=== PATIENT | female | born 1980 | race Caucasian/White ===

== ENCOUNTER 2016-06-26 09:58 | Emergency (ER) | payer OTHER ==
[2016-06-26 10:10] VITALS: BP 126/61; PULSE 100; TEMP 98; BMI 20.5
[2016-06-26] MEDS ORDERED: ACETAMINOPHEN 500 MG TABLET (FP) PO ONE (10:57)
--- NOTE | 2016-06-26 10:58 | PDOC ---
History of Present Illness - General Chief Complaint: Pain Stated Complaint: WRIST PAIN (BOTH) Time Seen by Provider: 06/26/16 10:29 History Source: Patient Exam Limitations: No Limitations - History of Present Illness Initial Comments: 06/26/16 19:51 Chief complaint: Bilateral medial wrist pain 4 months History of present illness: Patient is a 36-year-old female with no significant medical problems here today complaining of bilateral medial wrist pain 4 months. Patient reports that the right is worse in the left right medial wrist is currently a 9 out of 10 with movement and left medial wrist is a 5 out of 10 with movement. Patient reports that she is breast-feeding and is constantly holding her baby and bending her wrist. Patient has not sought any medical treatment for this complaint. Patient has not taken anything for pain. Denies any radiation of pain up arms are any pain and fingers. Patient reports having tingling in her right dominant and middle finger at times. Patient denies any tingling or numbness of wrist or radiation of the forearms. Occurred: reports: other (4 MONTHS B/L WRIST PAIN ) Extremity Pain Location - Extremity Pain Location Extremity Pain Locations: bilateral: other (wrists ) Past History - Past Medical History Allergies/Adverse Reactions: Allergies Allergy/AdvReac Type Severity Reaction Status Date / Time No Known Allergies Allergy Verified 06/26/16 10:06 Home Medications: Ambulatory Orders NK [No Known Home Medication] 06/26/16 Other medical history: MIGRANES. - Psycho/Social/Smoking Cessation Hx Suicidal Ideation: No Smoking History: Never smoked Review of Systems - Review of Systems Able to Perform ROS?: Yes Constitutional: No: Symptoms Reported HEENTM: No: Symptoms Reported Respiratory: No: Symptoms reported Cardiac (ROS): No: Symptoms Reported ABD/GI: No: Symptoms Reported : No: Symptoms Reported Musculoskeletal: Yes: Joint Pain (b/l medial wrist). No: Joint Swelling Integumentary: No: Symptoms Reported Neurological: No: Symptoms reported *Physical Exam - Vital Signs Last Vital Signs Temp Pulse Resp BP Pulse Ox 98 F 100 H 19 126/61 100 06/26/16 10:07 06/26/16 10:07 06/26/16 10:07 06/26/16 10:07 06/26/16 10:07 - Physical Exam General Appearance: Yes: Appropriately Dressed Respiratory/Chest: positive: Lungs Clear, Normal Breath Sounds Cardiovascular: positive: Regular Rhythm, Regular Rate, S1, S2 Comments:: 06/26/16 19:53 radial b/l wrist 4 + Extremity: positive: Normal Capillary Refill, Normal Range of Motion (b/ wrist all digits ), Tender (b/l medial wrist), Other (negtive PHALEN, TINEL b/l ) Integumentary: positive: Normal Color Neurologic: positive: Alert, Normal Response, Responsive. negative: Respond to painful stimul (b/l wrist/digits on hands ), Numbness, Sensory Deficit Procedures - Consent Consent obtained: From Patient - Splinting Splint Type: Yes: Wrist (rt. ) Post-Proc Neuro Vasc Exam: normal Complications: No Medical Decision Making - Medical Decision Making 06/26/16 19:53 Patient is a 36-year-old female with no significant medical problems here today complaining of bilateral medial wrist pain 4 months. Patient reports that the right is worse in the left right medial wrist is currently a 9 out of 10 with movement and left medial wrist is a 5 out of 10 with movement. Patient reports that she is breast-feeding and is constantly holding her baby and bending her wrist. Patient has not sought any medical treatment for this complaint. Patient has not taken anything for pain. Denies any radiation of pain up arms are any pain and fingers. Patient reports having tingling in her right dominant and middle finger at times. Patient denies any tingling or numbness of wrist or radiation of the forearms. rt. hand dominant b/l wrist pain PLAN xray b/l wrist no abnormality noted ` Acetaminophen 1000 mg by mouth now Right wrist splint applied follow Up with orthopedist as soon as possible 06/26/16 19:55 06/26/16 19:56 *DC/Admit/Observation/Transfer Diagnosis at time of Disposition: Strain of wrist, bilateral - Discharge Dispostion Disposition: HOME Condition at time of disposition: Stable - Referrals Referrals: Marcos Lee MD [Staff Physician] - - Patient Instructions Additional Instructions: wear wrist splint on right wrist during the day follow up with orthopedist for further evaluation take acetaminophen as directed by [employer] workflow consultant patient voiced understanding of discharge instructions and all questions were answered
[2016-06-26] MEDS ORDERED: ACETAMINOPHEN 500 MG TABLET (FP) ONE (10:59)
== END 2016-06-26 11:58 | disposition home or self-care (01) ==
LOC: JERFT 09:58
PROC: 2W38X1Z Immobilization of Right Upper Extremity using Splint (ICD-10-PCS; principal; 2016-06-26)
DX: S63.591A Other specified sprain of right wrist, initial encounter (principal); S63.592A Other specified sprain of left wrist, initial encounter; X50.1XXA Overexertion from prolonged static or awkward postures, initial encounter; Y93.F2 Activity, caregiving, lifting; Y92.038 Other place in apartment as the place of occurrence of the external cause
CPT/HCPCS: 73110-TC-LT; 73110-TC-RT; 99281-25

== ENCOUNTER 2020-12-02 19:27 | Emergency (ER) | payer OTHER ==
[2020-12-02 19:50] VITALS: BP 133/89; PULSE 92; TEMP 98.2; BMI 19.6
[2020-12-02] MEDS ORDERED: ACETAMINOPHEN 500 MG TABLET (FP) PO ONE (23:40)
[2020-12-02] MEDS ORDERED: ACETAMINOPHEN 500 MG TABLET (FP) ONE (23:50)
[2020-12-03 00:03] LABS: BASO % 0.8 % (0-2.0); EOS % 0.4 % (0-4.5); HEMATOCRIT 38.8 % (32.4-45.2); HEMOGLOBIN 13.5 GM/dL (10.7-15.3); LYMPH % 25.3 % (8-40); MCH 32.5 pg (25.7-33.7); MCHC 34.7 g/dl (32.0-36.0); MEAN CELL VOLUME 93.7 fl (80-96); MEAN PLT VOLUME 7.6 fl (7.5-11.1); MONO % 8.1 % (3.8-10.2); NEUT % 65.4 % (42.8-82.8); PLATELET COUNT 213 10^3/uL (134-434); RBC 4.14 M/mm3 (3.60-5.2); RDW 13.2 % (11.6-15.6); WHITE BLOOD COUNT 7.4 K/mm3 (4.0-10.0)
[2020-12-03 00:17] LABS: PH,URINE 6.5 (5.0-8.0); URINE APPEARANCE CLEAR; URINE BILIRUBIN NEGATIVE (NEGATIVE); URINE COLOR YELLOW; URINE GLUCOSE (UA) NEGATIVE (NEGATIVE); URINE KETONE NEGATIVE (NEGATIVE); URINE LEUK ESTERASE NEGATIVE (NEGATIVE); URINE NITRITE NEGATIVE (NEGATIVE); URINE PROTEIN NEGATIVE (NEGATIVE); URINE UROBILINOGEN 0.2 mg/dL (0.2-1.0)
[2020-12-03 00:21] LABS: ALBUMIN 3.5 g/dl (3.4-5.0); BLOOD UREA NITROGEN 15.9 mg/dL (7-18); CALCIUM 8.9 mg/dL (8.5-10.1)
[2020-12-03 00:24] LABS: CREATININE 0.7 mg/dL (0.55-1.3)
[2020-12-03 00:26] LABS: BILIRUBIN,TOTAL 0.6 mg/dL (0.2-1); TOT PROT 7.5 g/dl (6.4-8.2)
== END 2020-12-03 02:16 | disposition home or self-care (01) ==
LOC: JER 19:27
DX: O26.892 Other specified pregnancy related conditions, second trimester (principal); R10.30 Lower abdominal pain, unspecified; Z3A.18 18 weeks gestation of pregnancy
CPT/HCPCS: 36415; 76815-TC; 80053; 81003; 85025; 86850; 86900; 86901; 87086; 99284-25